=== PATIENT | female | born 1960 | race Caucasian/White ===

== ENCOUNTER 2024-04-28 12:45 | Outpatient (CLI) | payer MEDICARE, MEDICAID, SELFPAY ==
--- NOTE | ~2024-04-28 | CT_ITS ---
EXAMINATION: CT brain wo con DATE: 04/28/2024 13:18 INDICATION: Headache. TECHNIQUE: Computed tomography (CT) of the head was performed without intravenous contrast. The mA wa s adjusted according to patient size. Iterative reconstruction technique was employed. The dose-lengt h product was 681.00 mGy-cm. COMPARISON: None FINDINGS: There is no intracranial hemorrhage, acute infarction, or abnormal intracranial mass lesion . There are scattered areas of low attenuation in the cerebral white matter. The ventricles are belkis l in size. There is mucosal thickening in the paranasal sinuses. There is an old blowout fracture of floor and medial wall of right orbit. There is a left mastoid effusion. There is a right otomastoid e ffusion. IMPRESSION: 1. Mild nonspecific cerebral white matter disease, which likely represents chronic small vessel ische cinda disease. Reviewed, dictated and finalized at location A. IMPRESSION: 1. Mild nonspecific cerebral white matter disease, which likely represents channel director yaa small vessel ischemic disease.
== END 2024-04-28 12:46 | disposition home or self-care (01) ==
PROVIDERS: PCP Physician Assistant; Visit Provider Physician Assistant
DX: G43.909 Migraine, unspecified, not intractable, without status migrainosus (principal); R90.82 White matter disease, unspecified
CPT/HCPCS: 70450